=== PATIENT | female | born 1960 | race Hispanic/Latino ===

== ENCOUNTER 2024-07-08 07:43 | Day surgery (SDC) | payer MEDICARE ==
[2024-07-08] VITALS (10 sets, daily range): BP systolic 107–145; BP diastolic 70–84; PULSE 75–92; RESP 14–20; TEMP 97–97.6
[~2024-07-08] VITALS: Ht 162.6 cm; Wt 157.9 kg
[~2024-07-08 07:43] MED LIST: MELO-108 PO; OXYB10TA30 PO
[2024-07-08] MEDS: 0.9%NACL 1000ML 1,000 ML IV ONE (08:06)
[2024-07-08] MEDS ORDERED: proPOFol 10 MG/ML 20ML VIAL IV ONE (08:59)
[2024-07-08] MEDS ORDERED: MIDAZOLAM HCL 1 MG/ML 2ML VIAL ONE (08:59)
[2024-07-08] MEDS ORDERED: LIDOCAINE PF 100MG/5ML (2%) SYRINGE 5ML ONE (09:00)
--- NOTE | 2024-07-08 10:52 | NUR ---
Full and complete discharge instructions given to Patient and Family both verbally and in writing. All questions answered. Tolerating PO fluids well. Voiced understanding to GI procedure and follow up. PIV removed with catheter tip intact. W\C to POV with Family to home.
== END 2024-07-08 10:52 | disposition home or self-care (01) ==
LOC: ENDO 07:43 → DAH 07:43 → ENDO 10:52
PROVIDERS: ATTEND Internal Medicine Gastroenterology
DX: R12 Heartburn (principal); K29.50 Unspecified chronic gastritis without bleeding; K22.89 Other specified disease of esophagus; K31.89 Other diseases of stomach and duodenum; I10 Essential (primary) hypertension; E66.01 Morbid (severe) obesity due to excess calories; E55.9 Vitamin D deficiency, unspecified; M15.9 Polyosteoarthritis, unspecified; M81.0 Age-related osteoporosis without current pathological fracture; Z68.43 Body mass index [BMI] 50.0-59.9, adult; Z86.0100 Personal history of colon polyps, unspecified; Z90.710 Acquired absence of both cervix and uterus; Z90.89 Acquired absence of other organs; Z79.899 Other long term (current) drug therapy
CPT/HCPCS: 43239; J7030 ×2; J2003; J2250; J2704; A4620; A4215; A4223; A7002; A4222; A4221; A4663; A4606; J3490

== ENCOUNTER 2024-08-06 00:27 | Emergency (ER) | payer MEDICARE ==
[~2024-08-06] VITALS: Ht 157.5 cm; Wt 157.9 kg
--- NOTE | 2024-08-06 00:49 | ERN ---
ED Note History of Present Illness Stated Complaint: C/O ABD PAIN, LAST BM 3 DAYS AGO Chief Complaint: Abdominal Pain Time Seen by MD: 00:29 Time Seen by Midlevel: 00:29 Dictation: The patient is a 64-year-old female with a history of tubal ligation, left knee surgery, hysterectomy who presents to the emergency department with complaints of lower abdominal pain onset two days ago associated with constipation. Patient reports she has not had a bowel movement in two days. Reports she took jxop-vcs-cbbglds laxatives yesterday with no improvement. Reports some nausea nonbloody vomiting. Denies any fevers Allergies: Coded Allergies: No Known Allergies (Unverified Allergy, Unknown, 07/08/24) Home Meds Reported Medications Oxybutynin Chloride (Oxybutynin Chloride ER) 10 Mg Tab.er.24, 1 TAB PO DAILY for 30 Days, #30 TAB 0 Refills 07/07/24 Meloxicam (Meloxicam) 15 Mg Tablet, 1 TAB PO DAILY for 30 Days, #30 TAB 0 Refills 07/07/24 Past Medical History Past Medical History: No Pertinent History Surgical History: Hysterectomy, Other Surgical History Other: RECONSTRUCTIVE KNEE SX RN Note Reviewed/Agreed w/PFSH: Yes Review of System Dictation Constitutional: Negative for fever,chills, and weight loss Eyes: Negative for injury, pain,redness, and discharge ENT: Negative for injury,pain or swelling Cardiovascular: Negative for chest pain, palpitations, and edema Respiratory: Negative for shortness of breath, cough, and wheezing, Abdomen/GI: Negative for diarrhea, positive for abdominal pain, nausea, vomiting, constipation Back: Negative for injury and pain : Negative for injury, bleeding and discharge MS/Extremity: Negative for injury and deformity Skin: Negative for rash, and discoloration Neuro: Negative for headache, weakness, numbness, tingling, and seizure Psych: Negative for suicide ideation, homicidal ideation, and hallucinations Initial Vital Sign VS Vital Signs Date Time Temp Pulse Resp B/P (MAP) Pulse Ox O2 Delivery O2 Flow Rate FiO2 08/06/24 00:28 98.2 101 20 135/91 98 Room Air 08/06/24 01:18 0 21 Physical Exam Dictation Vital Signs reviewed General Appearance: Alert, oriented x 3, no acute distress, well developed, nourished. Head and Face: non-traumatic. Eyes: PERRL, pink conjunctivas, eyelid no trauma, anterior chamber with arcus senilis. Ears: Pinnas intact and no signs of trauma or erythema ear canals clear and no discharge TM no erythema Nose: No discharge, no bleeding. Oropharynx: Mouth normal, tongue pink. pharynx clear,no erythema, tonsils no exudates, no abscesses noted, mucous membrane moist Neck: Supple, non-tender, no thyromegaly, no masses, no JVD, no bruits Breast:Deferred Chest:No tenderness, no crepitus, no paradoxical movement, no retractions Lungs:Clear, well-ventilated, symmetric, no rales, no wheezing, no rhonchi, no stridor, good breath sounds bilaterally Heart: Regular rate, regular rhythm, no murmur, no gallops Vascular: no peripheral edema, Abdomen: Soft, positive bowel sounds, nondistended, no guarding, nontender, no rebound, no masses no hepatomegaly, no splenomegaly, no Hein's sign, no hernias. Rectal: Deferred Genital: Deferred Neurological: Normal speech, motor function intact, sensory function intact Musculoskeletal: Neck nontender, full range of motion, back nontender, full range of motion, Extremities: nontender, full range of motion Skin: Color pink, dry, no turgor, no rash, no lacerations, no abrasions, no contusions. Lymphatic: Deferred Results (Laboratory/Radiology) Laboratory/Radiology Laboratory Tests Test 08/06/24 01:16 08/06/24 03:27 White Blood Count 14.2 K/uL (4.8-10.8) H Red Blood Count 4.54 MIL/uL (4.00-5.50) Hemoglobin 13.4 g/dL (12.0-16.0) Hematocrit 41.5 % (36-48) Mean Corpuscular Volume 91.4 fL (79-99) Mean Corpuscular Hemoglobin 29.5 pg (27.0-33.0) Mean Corpuscular Hemoglobin Concent 32.3 g/dL (32.0-36.0) Red Cell Distribution Width 14.6 % (11.0-15.5) Platelet Count 241 K/uL (130-400) Mean Platelet Volume 9.7 fL (7.5-10.5) Immature Granulocyte % (Auto) 0.8 % (0-1) Neutrophils (%) (Auto) 78.4 % (40.0-77.0) H Lymphocytes (%) (Auto) 14.3 % (21.0-51.0) L Monocytes (%) (Auto) 5.1 % (3.0-13.0) Eosinophils (%) (Auto) 1.1 % (0.0-8.0) Basophils (%) (Auto) 0.3 % (0.0-5.0) Neutrophils # (Auto) 11.1 K/uL (1.8-7.7) H Lymphocytes # (Auto) 2.0 K/uL (1.0-4.8) Monocytes # (Auto) 0.7 K/uL (0.1-1.0) Eosinophils # (Auto) 0.16 K/uL (0.00-0.70) Basophils # (Auto) 0.04 K/uL (0.00-0.20) Absolute Immature Granulocyte (auto 0.12 K/uL (0-1) Nucleated Red Blood Cells 0.0 % (0.0-0.19) Sodium Level 139 mmol/L (136-145) Potassium Level 3.7 mmol/L (3.5-5.1) Chloride Level 102 mmol/L (101-111) Carbon Dioxide Level 26 mmol/L (21-32) Blood Urea Nitrogen 17 mg/dL (7-18) Creatinine 0.9 mg/dL (0.5-1.0) Glomerular Filtration Rate Calc 72 mL/min (>90) Random Glucose 196 mg/dL (70-105) H Total Calcium 8.9 mg/dL (8.5-10.1) Total Bilirubin 0.3 mg/dL (0.2-1.0) Direct Bilirubin 0.1 mg/dL (0.0-0.3) Aspartate Amino Transf (AST/SGOT) 16 U/L (10-37) Alanine Aminotransferase (ALT/SGPT) 19 U/L (12-78) Alkaline Phosphatase 97 U/L (50-136) Total Creatine Kinase 45 U/L (21-232) Troponin I High Sensitivity 5 ng/L (4-50) Total Protein 7.1 g/dL (6.0-8.3) Albumin 3.4 g/dL (3.5-5.0) L Lipase 24 U/L (16-77) Urine Color COLORLESS (YELLOW) Urine Appearance CLEAR (CLEAR) Urine pH 7.5 (5.0-8.0) Urine Specific Cameron 1.029 (1.001-1.031) Urine Protein NEGATIVE mg/dL (NEGATIVE) Urine Glucose (UA) NEGATIVE mg/dL (NEGATIVE) Urine Ketones NEGATIVE mg/dL (NEGATIVE) Urine Occult Blood +- (TRACE) (NEGATIVE) H Urine Nitrate NEGATIVE (NEGATIVE) Urine Bilirubin NEGATIVE mg/dL (NEGATIVE) Urine Urobilinogen 0.2 mg/dL (0.2-1.0) Urine Leukocyte Esterase NEGATIVE Raquel/uL Urine RBC 0-1 /HPF (0-1) Urine WBC None /HPF (0-1) Urine Squamous Epithelial Cells RARE /HPF (0-2) Urine Bacteria None /HPF (None Seen) Labs Reviewed?: Yes EKG: (+) rhythm (Sinus rhythm) EKG Comment: Date:08/06/2024 Time:0106 Ventricular rate:98 HI interval:162 QRS duration:89 QT/QTc:354 EKG interpretation: Sinus rhythm Reviewed by ED Attending no STEMI ED Course ED Course Orders Procedure Category Date Status Time Cbc With Differential LAB 08/06/24 Complete 00:39 Troponin I High LAB 08/06/24 Complete Sensitivity 00:39 Urinalysis Profile LAB 08/06/24 Complete 00:39 12 Lead Ekg Tracing- EKG 08/06/24 Logged Technical 00:39 0.9%Nacl 1000ml (Ns PHA 08/06/24 Complete 1000ml) 01:00 Ondansetron 4mg Inj PHA 08/06/24 Complete (Zofran 4mg Inj) 01:00 Pantoprazole 40mg Inj PHA 08/06/24 Complete (Protonix 40mg Inj 01:00 Creatine Kinase, Total LAB 08/06/24 Complete 00:39 Lipase LAB 08/06/24 Complete 00:39 Basic Metabolic Panel LAB 08/06/24 Complete 00:39 Hepatic Function Panel LAB 08/06/24 Complete 00:39 Ct Abdomen/Pelvis CT 08/06/24 Taken W/Contrast 01:46 Iohexol (Omnipaque) PHA 08/06/24 Complete 02:34 Current Medications Medications (Trade) Dose Ordered Sig/Bob Route PRN Reason Start Time Stop Time Status Last Admin Dose Admin Iohexol (Omnipaque) 35,000 mg STK-MED ONCE IV 08/06/24 02:34 08/06/24 02:35 DC Ondansetron HCl (zoFRAN 4MG INJ) 4 mg ONCE ONCE IVP 08/06/24 01:00 08/06/24 01:01 DC 08/06/24 01:26 Pantoprazole Sodium (PROTonix 40MG INJ) 40 mg ONCE ONCE IVP 08/06/24 01:00 08/06/24 01:01 DC 08/06/24 01:26 Sodium Chloride 1,000 ml @ 0 mls/hr ONCE ONCE IV 08/06/24 01:00 08/06/24 01:01 DC 08/06/24 01:26 Vital Signs Date Time Temp Pulse Resp B/P (MAP) Pulse Ox O2 Delivery O2 Flow Rate FiO2 08/06/24 01:18 97.7 109 18 145/78 95 Room Air* 0 21 08/06/24 00:28 98.2 101 20 135/91 98 Room Air Patient's abdominal CT scan is negative for free air, mild stool burden, no small bowel obstruction. I do not see any hydronephrosis or stones. Patient does have a slight elevation in her white blood cell count we are waiting for a urinalysis. The UA was negative. I talked to the patient and she said all my white blood cell count is always 14. My doctor and I have not been able why but it is always like that. Medical Decision Making MDM The patient is a 64-year-old female with a history of tubal ligation, left knee surgery, hysterectomy who presents to the emergency department with complaints of lower abdominal pain onset two days ago associated with constipation. Patient reports she has not had a bowel movement in two days. Reports she took xohj-llw-gfrjwdk laxatives yesterday with no improvement. Reports some nausea nonbloody vomiting. Denies any fevers CBC showed leukocytosis, no anemia, chemistry showed no electrolyte imbalance, normal liver enzymes, negative lipase, negative troponin Differential diagnosis: Constipation, gastritis, bowel obstruction, dehydration. The CT scan was negative the CBC showed a slight elevation in her white blood cell count of 14 her UA was negative as well. DX & DISP Disposition: Discharge Departure Impression: Primary Impression: Constipation Condition: Stable Additional Instructions: Please return if you have fevers chills signs and symptoms of an infection. If this entire admission was truly from constipation I recommend daily MiraLax. Referrals: TONJA ANDREWS MD (PCP) MORRO ARMSTRONG Aug 06, 2024 00:49 RAGHU REYES MD Aug 06, 2024 03:23
--- NOTE | 2024-08-06 01:04 | NUR ---
PT BACK FROM RESTROOM. PER PT, PT HAD LARGE BM, ABDOMINAL PAIN HAS SUBSIDED AFTER BM.
[2024-08-06] MEDS: ondanSETRON 4MG INJ IVP ONE (01:26)
[2024-08-06] MEDS: 0.9%NACL 1000ML 1,000 ML IV ONE (01:26)
[2024-08-06] MEDS: PANTOPrazole 40 MG/VIAL IVP ONE (01:26)
[2024-08-06 01:27] LABS: BASOPHILS # (AUTO) 0.04 K/uL (0.00-0.20); BASOPHILS % (AUTO) 0.3 % (0.0-5.0); EOSINOPHILS # (AUTO) 0.16 K/uL (0.00-0.70); EOSINOPHILS % (AUTO) 1.1 % (0.0-8.0); HEMATOCRIT 41.5 % (36-48); IMMATURE GRANULOCYTE ABSOLUTE 0.12 K/uL (0-1); LYMPHOCYTES % (AUTO) 14.3 % (21.0-51.0); MEAN CORPUSCULAR HEMOGLOBIN 29.5 pg (27.0-33.0); MEAN CORPUSCULAR HGB CONC 32.3 g/dL (32.0-36.0); MEAN CORPUSCULAR VOLUME 91.4 fL (79-99); MONOCYTES # (AUTO) 0.7 K/uL (0.1-1.0); MONOCYTES % (AUTO) 5.1 % (3.0-13.0); NEUTROPHILS # (AUTO) 11.1 K/uL (1.8-7.7); NEUTROPHILS % (AUTO) 78.4 % (40.0-77.0); PLATELET COUNT (AUTO) 241 K/uL (130-400); RED BLOOD CELL COUNT(AUTO) 4.54 MIL/uL (4.00-5.50); RED CELL DISTRIBUTION WIDTH 14.6 % (11.0-15.5); WHITE BLOOD COUNT (AUTO) 14.2 K/uL (4.8-10.8)
[2024-08-06 01:40] LABS: CREATININE 0.9 mg/dL (0.5-1.0); POTASSIUM 3.7 mmol/L (3.5-5.1)
[2024-08-06 01:45] LABS: ALBUMIN 3.4 g/dL (3.5-5.0); BILIRUBIN,DIRECT 0.1 mg/dL (0.0-0.3); BILIRUBIN,TOTAL 0.3 mg/dL (0.2-1.0); TOTAL PROTEIN, SERUM 7.1 g/dL (6.0-8.3)
[2024-08-06] MEDS ORDERED: IOHEXOL 350 MG/ML 100ML INFUS..BTL IV ONE (02:34)
[2024-08-06 03:40] LABS: APPEARANCE,URINE CLEAR (CLEAR); BILIRUBIN,URINE NEGATIVE (NEGATIVE); COLOR,URINE COLORLESS (YELLOW); GLUCOSE, URINE (UA) NEGATIVE (NEGATIVE); KETONES,URINE NEGATIVE (NEGATIVE); LEUKOCYTE ESTERASE ,URINE NEGATIVE Leu/uL (NEGATIVE); NITRATE,URINE NEGATIVE (NEGATIVE); PH,URINE 7.5 (5.0-8.0); PROTEIN,URINE NEGATIVE (NEGATIVE); UROBILINOGEN,URINE 0.2 mg/dL (0.2-1.0)
[2024-08-06 03:48] LABS: ADD UA MICROSCOPIC YES
[2024-08-06 03:50] LABS: RBC,URINE 0-1 /HPF (0-1); SQUAMOUS EPITHELIAL CELL,UR RARE /HPF (0-2)
[2024-08-06 04:08] VITALS: BP 138/61; PULSE 91; RESP 18; TEMP 97.7; O2SAT 96
--- NOTE | 2024-08-06 09:11 | HMCIMG ---
CT ABDOMEN/PELVIS W/CONTRAST HISTORY: Lower abdominal pain COMPARISON: None TECHNIQUE: Multiple sequential axial images of the abdomen and pelvis were obtained from the dome of the diaphragm through symphysis pubis. Patient was not given contrast through intravenous route. Oral contrast was not given. FINDINGS: No pleural effusion is seen bilaterally. There is no evidence of parenchymal disease or pulmonary nodule of the visualized lower lungs. Degenerative changes of the thoracolumbar spine are present. The heart is not enlarged. Liver is enlarged with fatty changes measuring 23 cm. No bowel obstruction is seen. The liver, spleen, adrenal glands and pancreas are unremarkable. There is no evidence of hydronephrosis bilaterally. No evidence of renal stone is seen. Fecal material is seen in the colon. There are normal size retroperitoneal and mesenteric lymph nodes. No ascites is seen. Atherosclerotic changes are present. Pelvic sidewalls are symmetric bilaterally. Bladder is poorly distended. IMPRESSION: 1. No acute findings. CT was performed with one or more following dose reduction techniques: automated exposure control, adjustment of the mA and kv according to patient's size, or use of a iterative reconstruction technique.
--- NOTE | 2024-08-06 09:24 | EKG ---
[facility] Test Date: 2024-08-06 Test Time: 01:06:28 Pat Name: JAYLA ORTEGA Department: ED Room: Gender: F [employer] Worker: [id number] : 1960 Requested By: MORRO ARMSTRONG Order Number: [id number] Reading MD: Kendra Worrell Measurements Intervals Kathleen Rate: 98 P: 26 ID: [id number] QRS: -13 QRSD: 89 T: 41 QT: 354 QTc: 451 Interpretive Statements Sinus rhythm No previous ECG available for comparison Electronically Signed On 08-06-2024 10:58:37 CDT by Kendra Worrell Please click the below link to view image of tracing.
== END 2024-08-06 04:31 | disposition home or self-care (01) ==
LOC: EDH 00:27
DX: K59.00 Constipation, unspecified (principal); Z79.1 Long term (current) use of non-steroidal anti-inflammatories (NSAID); Z90.710 Acquired absence of both cervix and uterus; Z98.890 Other specified postprocedural states
CPT/HCPCS: 99285; 74177; 96374; 96361; 96375; 82550; 80076; 84484; 80048; 83690; 85025; 81001; 36415; 93005; J7030; J2405; J2470; Q9967